=== PATIENT | male | born 2000 | race Two or more races ===

== ENCOUNTER 2020-07-24 07:31 | Emergency (ER) | payer OTHER ==
[2020-07-24] MEDS ORDERED: NAPROXEN500 MG PO (08:09)
[2020-07-25] MEDS ORDERED: MEDROL 4MG DOSEP4 MG PO (04:30)
== END 2020-07-24 08:50 | disposition home or self-care (01) ==
LOC: FER 07:31
DX: S39.011A Strain of muscle, fascia and tendon of abdomen, initial encounter (principal); X58.XXXA Exposure to other specified factors, initial encounter
CPT/HCPCS: 72170; J1885

== ENCOUNTER 2020-07-24 21:13 | Emergency (ER) | payer OTHER ==
[~2020-07-24 21:13] MED LIST: NAPROXEN500 MG PO
[2020-07-25] MEDS ORDERED: MEDROL 4MG DOSEP4 MG PO (04:30)
== END 2020-07-25 04:45 | disposition home or self-care (01) ==
LOC: FER 21:13
DX: M76.32 Iliotibial band syndrome, left leg (principal); F17.290 Nicotine dependence, other tobacco product, uncomplicated; Z88.6 Allergy status to analgesic agent

== ENCOUNTER 2020-07-28 20:25 | Emergency (ER) | payer OTHER ==
[~2020-07-28 20:25] MED LIST changes: +MEDROL 4MG DOSEP4 MG PO
== END 2020-07-29 02:51 | disposition home or self-care (01) ==
LOC: FER 20:25
DX: R21 Rash and other nonspecific skin eruption (principal); F17.290 Nicotine dependence, other tobacco product, uncomplicated
CPT/HCPCS: 99282

== ENCOUNTER 2020-10-24 07:17 | Emergency (ER) | payer OTHER ==
[2020-10-24 07:58] LABS: BASOPHIL 0.4 % (0-2); EOSINOPHIL 3.9 % (0-5); HGB 15.8 g/dl (13.2-18.0); LYMPHOCYTE 33.2 % (15-48); MCH 31.8 pg (25.0-31.0); MCHC 35.1 g/dL (32.0-36.0); MCV 90.5 fL (78.0-100.0); MPV 9.6 fL (6.0-9.5); NEUTROPHIL 54.9 % (41-80); NRBC 0; PLT 274 K/uL (150-400); RBC 4.97 M/uL (4.70-6.00); RDW 13.2 % (11.5-14.0); WBC 5.4 K/uL (4.0-10.5)
[2020-10-24 08:13] LABS: BILIRUBIN - TOTAL 0.4 mg/dL (0.2-1.0); BUN/CREAT RATIO (CALC) 23.4 RATIO; CREATININE 0.77 mg/dL (0.67-1.17); GLOBULIN (CALCULATION) 3.4 g/dL; POTASSIUM 3.8 mmol/L (3.5-5.1); TOTAL PROTEIN 7.4 g/dL (6.4-8.2)
[2020-10-24 08:17] LABS: BILIRUBIN NEGATIVE (NEGATIVE); BLOOD NEGATIVE Ery/uL (NEGATIVE); CLARITY CLEAR (CLEAR); COLOR YELLOW (YELLOW); GLUCOSE (U) NORMAL (NORMAL); LEUKOCYTES NEGATIVE Leu/uL (NEGATIVE); NITRITE NEGATIVE (NEGATIVE); PROTEIN TRACE (LOW) mg/dL (NEGATIVE); SPECIFIC GRAVITY >=1.030 (1.001-1.030); UROBILINOGEN 0.2 mg/dL (0.2-1.0)
[2020-10-24 08:25] LABS: MUCOUS TRACE
[2020-10-24] MEDS ORDERED: ONDANSETRON ODT4 MG PO (08:46)
[2020-10-24] MEDS ORDERED: PEPCID AC20 MG PO (08:46)
== END 2020-10-24 09:03 | disposition home or self-care (01) ==
LOC: FER 07:17
PROVIDERS: Emergency Medicine
DX: K29.00 Acute gastritis without bleeding (principal)
CPT/HCPCS: 36415; 80053; 81001; 82150; 83690; 85025; 93005; 99284

== ENCOUNTER 2021-11-07 17:18 | Emergency (ER) | payer SELFPAY ==
[~2021-11-07 17:18] MED LIST changes: +ONDANSETRON ODT4 MG PO; +PEPCID AC20 MG PO
[2021-11-07 21:07] LABS: INFLUENZA A NAA NEGATIVE (NEGATIVE)
[2021-11-07 21:17] LABS: CORONAVIRUS 2019 SARS-COV-2 POSITIVE (NEGATIVE)
== END 2021-11-07 21:54 | disposition home or self-care (01) ==
LOC: FER 17:18
PROVIDERS: Nurse Practitioner Family
DX: U07.1 COVID-19 (principal); F17.210 Nicotine dependence, cigarettes, uncomplicated; Z28.310 Unvaccinated for COVID-19
CPT/HCPCS: 99283; U0002